=== PATIENT | female | born 1980 | race Caucasian/White ===

== ENCOUNTER 2021-04-13 14:17 | Observation (INO) | payer OTHER ==
[~2021-04-13] VITALS: Ht 160 cm; Wt 113.4 kg
[2021-04-13 15:43] LABS: BASOPHILS ABSOLUTE AUTO 0.05 K/mm3 (0.00-0.23); BASOPHILS PERCENT AUTO 0 % (0-2); EOSINOPHILS ABSOLUTE AUTO 0.06 K/mm3 (0.00-0.68); EOSINOPHILS PERCENT AUTO 0 % (0-6); Hematocrit 31.8 % (33.0-51.0); Hemoglobin 10.8 g/dL (11.5-16.0); IMMATURE GRAN PERCENT AUTO 1 % (0-1); LYMPHOCYTES ABSOLUTE AUTO 1.61 K/mm3 (0.84-5.20); LYMPHOCYTES PERCENT AUTO 10 % (21-46); MONOCYTES ABSOLUTE AUTO 0.91 K/mm3 (0.16-1.47); MONOCYTES PERCENT AUTO 6 % (4-13); Mean Corpuscular HGB 31.7 pg (26.0-34.0); Mean Corpuscular Volume 93 fL (80-100); Mean Platelet Volume 8.6 fL (9.1-12.4); NEUTROPHILS PERCENT AUTO 83 % (41-73); Platelet Count 275 K/mm3 (150-400); RDW Coefficient Variation 12.5 % (11.7-14.2); Red Blood Cell Count 3.41 M/mm3 (3.80-5.20); White Blood Cell Count 16.03 K/mm3 (4.00-11.30)
[2021-04-13 15:58] LABS: International Normalized Ratio 0.96; Prothrombin Time Results 10.4 Sec (9.7-11.5)
[2021-04-13 16:06] LABS: Alanine Aminotransfer (ALT/SGP 26 U/L (12-78); Albumin, Blood 3.6 g/dL (3.4-5.0); Albumin/Globulin Ratio 1.1 (0.8-1.8); Alk Phos 62 U/L (50-136); Anion Gap 7 mmol/L (6-16); Aspartate Aminotrans (AST/SGOT 21 U/L (12-37); Beta HCG, Quantitative, Serum <1 mIU/mL (0-3); Bilirubin, Total 0.3 mg/dL (0.1-1.0); Blood Urea Nitrogen 29 mg/dL (8-24); Bun/Creatinine Ratio 34.5 (12.0-20.0); CO2, Blood 24 mmol/L (21-32); Calcium, Blood 8.7 mg/dL (8.5-10.1); Chloride, Blood 107 mmol/L (98-108); Creatinine, Blood 0.84 mg/dL (0.40-1.00); Ethanol (Alcohol), Blood, Med <3 mg/dL; Globulin, Blood 3.3 g/dL (2.2-4.0); Glomerular Filtration Rate >60 (60-); Glucose, Blood 92 mg/dL (70-99); Potassium, Blood 3.4 mmol/L (3.5-5.5); Sodium, Blood 138 mmol/L (136-145); Total Protein, Blood 6.9 g/dL (6.4-8.2)
[2021-04-13] MEDS ORDERED: CEPH500 PO (17:17)
[2021-04-13] MEDS ORDERED: Norco 5-325 Ta1 EACH PO (17:17)
[2021-04-13] MEDS ORDERED: IBUP800 PO (17:17)
[2021-04-14 04:56] LABS: BASOPHILS ABSOLUTE AUTO 0.04 K/mm3 (0.00-0.23); BASOPHILS PERCENT AUTO 0 % (0-2); EOSINOPHILS ABSOLUTE AUTO 0.06 K/mm3 (0.00-0.68); EOSINOPHILS PERCENT AUTO 1 % (0-6); Hemoglobin 10.2 g/dL (11.5-16.0); IMMATURE GRAN ABSOLUTE AUTO 0.05 K/mm3 (0.00-0.10); IMMATURE GRAN PERCENT AUTO 1 % (0-1); LYMPHOCYTES ABSOLUTE AUTO 1.24 K/mm3 (0.84-5.20); LYMPHOCYTES PERCENT AUTO 12 % (21-46); MONOCYTES ABSOLUTE AUTO 0.98 K/mm3 (0.16-1.47); MONOCYTES PERCENT AUTO 9 % (4-13); Mean Corpuscular HGB 31.1 pg (26.0-34.0); Mean Corpuscular HGB Conc 32.9 g/dL (31.5-36.5); Mean Corpuscular Volume 95 fL (80-100); Mean Platelet Volume 8.8 fL (9.1-12.4); NEUTROPHILS ABSOLUTE AUTO 8.32 K/mm3 (1.96-9.15); NEUTROPHILS PERCENT AUTO 78 % (41-73); Platelet Count 268 K/mm3 (150-400); RDW Coefficient Variation 12.8 % (11.7-14.2); RDW Standard Deviation 44.6 fL (35.1-46.3); Red Blood Cell Count 3.28 M/mm3 (3.80-5.20); White Blood Cell Count 10.69 K/mm3 (4.00-11.30)
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
[2021-04-14 05:19] LABS: Alanine Aminotransfer (ALT/SGP 21 U/L (12-78); Albumin, Blood 3.3 g/dL (3.4-5.0); Alk Phos 55 U/L (50-136); Anion Gap 5 mmol/L (6-16); Aspartate Aminotrans (AST/SGOT 19 U/L (12-37); Bilirubin, Total 0.6 mg/dL (0.1-1.0); Blood Urea Nitrogen 23 mg/dL (8-24); Bun/Creatinine Ratio 39.8 (12.0-20.0); CO2, Blood 24 mmol/L (21-32); Calcium, Blood 8.1 mg/dL (8.5-10.1); Chloride, Blood 108 mmol/L (98-108); Creatinine, Blood 0.58 mg/dL (0.40-1.00); Globulin, Blood 3.3 g/dL (2.2-4.0); Glomerular Filtration Rate >60 (60-); Glucose, Blood 105 mg/dL (70-99); Potassium, Blood 3.5 mmol/L (3.5-5.5); Sodium, Blood 137 mmol/L (136-145); Total Protein, Blood 6.6 g/dL (6.4-8.2)
[2021-04-14] MEDS ORDERED: HYDR1TAB94 PO (13:22)
--- NOTE | 2021-04-14 15:16 | NUR ---
DISCHARGE SUMMARY PT A&OX4, VSS, LEFT FLOOR VIA WC WITH LINUX PROGRAMMER, TO GO HOME WITH MOM, WITH ALL PERSONAL PROPERTY, INCLUDING DC PACKET AND 1 NARC SCRIPT, AND DRESSING SUPPLIES. DC INSTRUCTIONS PROVIDED, PT REP UNDERSTANDING THOSE INSTRUCTIONS. IV DC'D.
[2021-05-03] MEDS ORDERED: CEPH500 PO (11:46)
[2021-05-15] MEDS ORDERED: IBUP800 PO (15:09)
[2021-05-16] MEDS ORDERED: Percocet 5-3251 EACH PO (09:54)
[2021-05-16] MEDS ORDERED: TRAZ50 PO (09:55)
[2021-05-16] MEDS ORDERED: UNKNOWN ANXIETY MED (10:01)
== END 2021-04-14 15:00 | disposition home or self-care (01) ==
LOC: ER 14:17 → SURS 14:18
PROVIDERS: Emergency Medicine; ADMIT Surgery
DX: S71.112A Laceration without foreign body, left thigh, initial encounter (principal); S30.1XXA Contusion of abdominal wall, initial encounter; S70.02XA Contusion of left hip, initial encounter; R40.2412 Glasgow coma scale score 13-15, at arrival to emergency department; V48.5XXA Car driver injured in noncollision transport accident in traffic accident, initial encounter
CPT/HCPCS: 12005; 36415; 70450; 71045; 71260; 73552; 74177; 80053; 83690; 84702; 85025; 85610; 96365-59; 96375; 96375-59; 96376; 96376-59; 99152; 99285-25; A9270; G0378; G0480; J0690; J1170; J2270; J2405; J3010; J7030; J7120; Q9967

== ENCOUNTER 2021-04-29 04:37 | Inpatient (IN) | payer OTHER ==
[~2021-04-29] VITALS: Ht 165.1 cm; Wt 86.2 kg
[~2021-04-29 04:37] MED LIST: CEPH500 PO; HYDR1TAB94 PO; IBUP800 PO; Norco 5-325 Ta1 EACH PO
[2021-04-29 07:17] LABS: BASOPHILS ABSOLUTE AUTO 0.05 K/mm3 (0.00-0.23); BASOPHILS PERCENT AUTO 1 % (0-2); EOSINOPHILS PERCENT AUTO 1 % (0-6); Hematocrit 33.4 % (33.0-51.0); Hemoglobin 10.7 g/dL (11.5-16.0); IMMATURE GRAN ABSOLUTE AUTO 0.03 K/mm3 (0.00-0.10); IMMATURE GRAN PERCENT AUTO 0 % (0-1); LYMPHOCYTES ABSOLUTE AUTO 1.65 K/mm3 (0.84-5.20); LYMPHOCYTES PERCENT AUTO 21 % (21-46); MONOCYTES ABSOLUTE AUTO 0.67 K/mm3 (0.16-1.47); MONOCYTES PERCENT AUTO 9 % (4-13); Mean Corpuscular HGB 31.7 pg (26.0-34.0); Mean Corpuscular Volume 99 fL (80-100); Mean Platelet Volume 9.1 fL (9.1-12.4); NEUTROPHILS ABSOLUTE AUTO 5.31 K/mm3 (1.96-9.15); NEUTROPHILS PERCENT AUTO 68 % (41-73); Platelet Count 413 K/mm3 (150-400); RDW Coefficient Variation 13.7 % (11.7-14.2); RDW Standard Deviation 48.7 fL (35.1-46.3); Red Blood Cell Count 3.38 M/mm3 (3.80-5.20); White Blood Cell Count 7.81 K/mm3 (4.00-11.30)
[2021-04-29 07:37] LABS: Alanine Aminotransfer (ALT/SGP 13 U/L (12-78); Albumin, Blood 3.1 g/dL (3.4-5.0); Albumin/Globulin Ratio 0.8 (0.8-1.8); Alk Phos 61 U/L (50-136); Anion Gap 5 mmol/L (6-16); Aspartate Aminotrans (AST/SGOT 13 U/L (12-37); Bilirubin, Total 0.2 mg/dL (0.1-1.0); Blood Urea Nitrogen 21 mg/dL (8-24); Bun/Creatinine Ratio 31.9 (12.0-20.0); CO2, Blood 27 mmol/L (21-32); Calcium, Blood 8.5 mg/dL (8.5-10.1); Chloride, Blood 108 mmol/L (98-108); Creatinine, Blood 0.66 mg/dL (0.40-1.00); Glomerular Filtration Rate >60 (60-); Glucose, Blood 111 mg/dL (70-99); Potassium, Blood 4.2 mmol/L (3.5-5.5); Sodium, Blood 140 mmol/L (136-145); Total Protein, Blood 7.1 g/dL (6.4-8.2)
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
[2021-04-29 09:23] LABS: SARS-Cov-2 (COVID-19) PCR, MMC NEGATIVE (NEGATIVE)
--- NOTE | 2021-04-29 09:40 | NUR ---
PT TO OR AT APROX 0908
--- NOTE | 2021-04-29 10:46 | NUR ---
04/29/21 1046 Chuck Barlow NO PREOP ANTIBIOTICS PER .
--- NOTE | 2021-04-29 18:12 | NUR ---
SHIFT SUMMARY PT POD 0 I&D W/WOUND VAC PLACEMENT TO L THIGH. SCANT AMT SANGUINOUS DRAINAGE PRESENT IN VAC COLLECTION, FOAM COMPRESSED. PT C/O "TUGGING PAIN", MEDICATED PER EMAR. PT SBA TO BATHROOM FOR ASSISTANCE WITH LINES. DENIES N/V, TOLERATING REGULAR DIET. AFEBRILE. PLAN IS TO DC HOME TOMORROW WITH HOME WOUND VAC, MEASURMENTS FOR WOUND ARE IN OPERATIVE REPORT.
--- NOTE | 2021-04-30 04:13 | NUR ---
SHIFT SUMMARY POD#1 LEFT THIGH I+D WITH WOUND VAC PLACEMENT. AAOX4. DISCOMFORT CONTROLLED WITH 1 NORCO Q4H + 0.5MG IV DILAUDID X2 THIS SHIFT. NO NAUSEA/EMESIS. WOUND VAC TO LEFT ANTERIOR THIGH C/D/I, SMALL AMOUNT SS DRAINAGE OUT. IVF PER ORDERS. GOOD PO INTAKE + URINE OUTPUT. PT UP TO RESTROOM SBA WITH FWW TO HELP MANAGE LINES. PT RESTING WELL THIS AM WITH CALL LIGHT IN REACH.
--- NOTE | 2021-04-30 19:39 | NUR ---
SHIFT SUMMARY PATIENT ALERT AND ORIENTED THROUGHOUT SHIFT. SBA WITH FWW AND WOUND VAC TO BATHROOM. WOUND VAC CHANGED THIS SHIFT BY GENERAL SURGERY. MEDICATED FOR PAIN PER EMAR. TOLERATING REGULAR DIET AND FLUIDS. PLAN IS TO RETURN TO OR IN NEXT DAY OR TWO FOR DEBRIDEMENT AND WASHOUT AND REPLACEMENT OF WOUND VAC. THEN DISCHARGE TO FOLLOW UP WITH WOUND CLINIC. REPORT GIVEN TO CORPORATE LIBRARIAN RN.
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
--- NOTE | 2021-05-01 13:43 | NUR ---
SPOKE WITH RADHA, WINDOWS APPLICATION ADMINISTRATOR ABOUT HH UPON DISCHARGE AND HOME WOUND VAC. HOME WOUND VAC NOW AT BEDSIDE. REVIEWED PT PLAN WITH , PT IS TO STAY TONIGHT AND HAVE DRESSING CHANGE IN THE OR WITH DR. JACOBS TOMORROW. PT AND PT FAMILY ARE AWARE. WILL CTM.
--- NOTE | 2021-05-01 19:56 | NUR ---
SUMMARY: NO ACUTE CHANGE TODAY, VSS, A/O. WOUND VAC SITE IS FIRM AND HOT TO THE TOUCH ON THE R SIDE OF WOUND EDGE, IS AWARE, OTHERWISE WOUND VAC COMPRESSED AND WNL. PT REPORTS PAIN MANAGABLE TODAY WITH 2 PERCOCET. PT AMBULATORY IN ROOM WITH FWW, MOVING WELL. PLAN IS FOR WOUND VAC CHANGE TOMORROW AND POSSIBLE I&D PER . NPO AT 0000. REPORT GIVEN TO NIKI ANDREWS RN .
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
--- NOTE | 2021-05-02 13:38 | NUR ---
PATIENT LEFT FOR SURGERY AROUND 1314 TODAY.
--- NOTE | 2021-05-02 14:08 | NUR ---
THE PATIENT WAS BROUGHT TO D/S FOR HER PROCEDURE. Mohit Paws warming gown applied. Patient up to Ambulate independently. Gait steady. History, Chart, Medications and Allergies reviewed before start of procedure.Lungs clear T/O to Auscultation. Patient confirms NPO status and agrees with scheduled surgery. Pre-Op teaching done. Pt verbalizes understanding. Patient States Post-Procedure ride home has been arranged.
--- NOTE | 2021-05-02 16:30 | NUR ---
PATIENT ARRIVED FROM PACU TODAY 05/02/21 AT 1630. POD 0 I&D AND WOUND VAC REPLACED SHE IS ALERT AND ORIENTED X4. VS ARE WNL AND IS ON RA. PATIENT DENIES PAIN AT THIS TIME. PATIENTS LEFT THIGH IS WARM TO TOUCH AND HAS A NEW WOUND VAC ON. BLACK FOAM IS COMPRESSED AND SUCTIONING OUTPUT. PATIENT IS TOLERATING SOME SALINES AND DRINKING WATER. SHE STATES SHE HAS SMALL AREA OF NUMBNESS BUT SHE IS ABLE TO WIGGLE FINGERS AND TOES. CALL LIGHT WITHIN REACH.
[2021-05-02] MEDS ORDERED: Norco 5-325 Ta1 EACH PO (16:41)
--- NOTE | 2021-05-02 17:07 | NUR ---
05/02/21 1707 S[facility] HUITRON PT NOTED TO HAVE A LOOSE TOOTH ON LEFT LOWER SIDE PRIOR TO PROCEDURE. LMA PLACED CAREFULLY BY ANESTHESIA, PTS TOOTH NOTED TO BE INTACT AFTER PLACEMENT OF LMA.
--- NOTE | 2021-05-02 18:10 | NUR ---
DISCHARGE NOTE: PATIENT WAS EDUCATED ON DISCHARGE INSTRUCTIONS. SHE VERBALIZED UNDERSTANDING OF INSTRUCTIONS AND HAD NO FURTHER QUESTIONS AT THIS TIME. PATIENTS HARD PERSCRIPTION WAS IN THE FOLDER WITH INSTRUCTIONS. SHE IS ALERT AND ORIENTED X4. VS ARE WNL AND IS ON RA. PAIN IS MANAGED WITH 2 PO NORCOS. PATIENT IS A SBA WITH AMBULATION. WOUND VAC HAS THE BLACK FOAM COMPRESSED AND IS SUCTIONING. SHE DENIES NUMBNESS OR TINGLING AT THIS TIME. SHE IS ABLE TO WIGGLE FINGERS AND TOES. PATIENT HAS HER PERSONAL BELONGINGS GATHERED AND IS DRESSED. IV WAS TAKEN OUT AND WAS WNL. PATIENT WAS WHEELCHAIRED OUT TO HUSBANDS CAR TO BE TAKEN HOME.
[2021-05-03] MEDS ORDERED: CEPH500 PO (11:46)
[2021-05-15] MEDS ORDERED: IBUP800 PO (15:09)
[2021-05-16] MEDS ORDERED: Percocet 5-3251 EACH PO (09:54)
[2021-05-16] MEDS ORDERED: TRAZ50 PO (09:55)
[2021-05-16] MEDS ORDERED: UNKNOWN ANXIETY MED (10:01)
== END 2021-05-02 18:30 | disposition home health service (06) | DRG 572 ==
LOC: ER 04:37 → SURS 04:38
PROVIDERS: Emergency Medicine; ADMIT Surgery
PROC: 0JBM0ZZ Excision of Left Upper Leg Subcutaneous Tissue and Fascia, Open Approach (ICD-10-PCS; principal; 2021-04-29 08:00)
DX: L03.116 Cellulitis of left lower limb (principal); S81.802A Unspecified open wound, left lower leg, initial encounter; Z20.822 Contact with and (suspected) exposure to COVID-19; V89.2XXA Person injured in unspecified motor-vehicle accident, traffic, initial encounter
CPT/HCPCS: 36415; 80053; 85025; 94760; 96374; 96375; 96376; 99284-25; A9270; G0378; J0690; J1100; J1170; J1650; J2175; J2250; J2405; J2704; J3010; J7030; J7120; U0004

== ENCOUNTER 2021-05-04 12:27 | Day surgery (SDC) | payer OTHER ==
[~2021-05-04] VITALS: Ht 165.1 cm; Wt 100.7 kg
--- NOTE | 2021-05-04 12:58 | NUR ---
PT IN TO SDS BY W/C BUT ABLE TO STAND AND GET SELF DRESSED INTO GOWN AND WALK SHORT DISTANCES. PT REPORTS HAVING HCG TEST COMPLETED FRIDAY. History, Chart, Medications and Allergies reviewed before start of procedure. Lungs clear T/O to Auscultation. Patient confirms NPO status and agrees with scheduled surgery. Pre-Op teaching done. Pt verbalizes understanding.
--- NOTE | 2021-05-04 13:09 | NUR ---
DISCUSSED ABX WITH WHO REPORTED NO NEED FOR ABX AT THIS TIME.
--- NOTE | 2021-05-04 13:49 | NUR ---
05/04/21 1349 [facility] [place] ASKED PRIOR TO PROCEDURE IF HEM WOULD LIKE PT TO HAVE A DOSE OF ANTIBIOTICS, DOES NOT WANT TO PT HAVE A DOSE OF ANTIBIOTICS AT THIS TIME.
--- NOTE | 2021-05-04 14:31 | NUR ---
Dressing to procedure site clean, dry, intact with no visible drainage, swelling, erythema or bruising noted.
--- NOTE | 2021-05-04 15:10 | NUR ---
PT STATES SHE HAS INSTRUCTIONS FOR WOUND VAC AT HOME WITH A NUMBER TO CALL FOR ANY QUESTIONS
--- NOTE | 2021-05-04 15:35 | NUR ---
Discharge instructions reviewed with patient. Patient verbalizes understanding. Copy given to patient to take home. Dressing to procedure site clean, dry, intact with no visible drainage, swelling, erythema or bruising noted. Discharged via wheelchair to private car for ride home.
== END 2021-05-04 15:40 | disposition home or self-care (01) ==
LOC: ORSCMMR 12:27 → ORD 13:30 → ORSCMMR 13:30
PROVIDERS: Surgery
PROC: 0JBM0ZZ Excision of Left Upper Leg Subcutaneous Tissue and Fascia, Open Approach (ICD-10-PCS; principal; 2021-05-04 13:30)
DX: S81.812D Laceration without foreign body, left lower leg, subsequent encounter (principal); V49.9XXD Car occupant (driver) (passenger) injured in unspecified traffic accident, subsequent encounter; E66.01 Morbid (severe) obesity due to excess calories; Z68.37 Body mass index [BMI] 37.0-37.9, adult; Z79.899 Other long term (current) drug therapy
CPT/HCPCS: A9270; J1100; J1885; J2270; J2370; J2405; J2704; J3010; J7120

== ENCOUNTER 2021-05-11 09:21 | Day surgery (SDC) | payer OTHER ==
[~2021-05-11] VITALS: Ht 165.1 cm; Wt 102.1 kg
[2021-05-15] MEDS ORDERED: IBUP800 PO (15:09)
[2021-05-16] MEDS ORDERED: Percocet 5-3251 EACH PO (09:54)
[2021-05-16] MEDS ORDERED: TRAZ50 PO (09:55)
[2021-05-16] MEDS ORDERED: UNKNOWN ANXIETY MED (10:01)
== END 2021-05-11 13:08 | disposition home or self-care (01) ==
LOC: ORSCSDS 09:21
PROVIDERS: Surgery
PROC: 0JBM0ZZ Excision of Left Upper Leg Subcutaneous Tissue and Fascia, Open Approach (ICD-10-PCS; principal; 2021-05-11 11:15)
DX: S81.812D Laceration without foreign body, left lower leg, subsequent encounter (principal); E66.01 Morbid (severe) obesity due to excess calories; Z68.37 Body mass index [BMI] 37.0-37.9, adult
CPT/HCPCS: J1100; J1885; J2250; J2405; J2704; J3010; J7120

== ENCOUNTER 2021-05-14 08:53 | Day surgery (SDC) | payer OTHER ==
[~2021-05-14] VITALS: Ht 165.1 cm; Wt 106.4 kg
[2021-05-14] MEDS ORDERED: OXYC5 (09:34)
--- NOTE | 2021-05-14 10:30 | NUR ---
MD AT BEDSIDE, ORDERED BLOOD CX AND CBC, PT MEDICATED WITH VERSED 2MG PER ORDER, ANESTHESIA AT BEDSIDE, PT TOLERATED BLOOD DRAW WELL.
[2021-05-14 10:41] LABS: BASOPHILS ABSOLUTE AUTO 0.05 K/mm3 (0.00-0.23); BASOPHILS PERCENT AUTO 0 % (0-2); EOSINOPHILS ABSOLUTE AUTO 0.14 K/mm3 (0.00-0.68); EOSINOPHILS PERCENT AUTO 1 % (0-6); Hematocrit 33.1 % (33.0-51.0); Hemoglobin 10.4 g/dL (11.5-16.0); IMMATURE GRAN ABSOLUTE AUTO 0.04 K/mm3 (0.00-0.10); IMMATURE GRAN PERCENT AUTO 0 % (0-1); LYMPHOCYTES PERCENT AUTO 13 % (21-46); MONOCYTES ABSOLUTE AUTO 0.78 K/mm3 (0.16-1.47); MONOCYTES PERCENT AUTO 7 % (4-13); Mean Corpuscular HGB 30.9 pg (26.0-34.0); Mean Corpuscular HGB Conc 31.4 g/dL (31.5-36.5); Mean Corpuscular Volume 98 fL (80-100); Mean Platelet Volume 8.7 fL (9.1-12.4); NEUTROPHILS PERCENT AUTO 78 % (41-73); Platelet Count 360 K/mm3 (150-400); RDW Coefficient Variation 13.3 % (11.7-14.2); RDW Standard Deviation 47.5 fL (35.1-46.3); Red Blood Cell Count 3.37 M/mm3 (3.80-5.20); White Blood Cell Count 11.21 K/mm3 (4.00-11.30)
--- NOTE | 2021-05-14 12:45 | NUR ---
Patient up to Ambulate independently. Gait steady. DENIES DIZZINESS. Discharge instructions reviewed with patient AND WHO VERBALIZE UNDERSTANDING. Copy given to patient to take home. Discharged via wheelchair to private car for ride home WITH .
[2021-05-15] MEDS ORDERED: IBUP800 PO (15:09)
--- NOTE | 2021-05-15 15:19 | NUR ---
05/15/21 1519 Sahra Pinedo VERIFICATIONS: EDIT CHART.
[2021-05-16] MEDS ORDERED: Percocet 5-3251 EACH PO (09:54)
[2021-05-16] MEDS ORDERED: TRAZ50 PO (09:55)
[2021-05-16] MEDS ORDERED: UNKNOWN ANXIETY MED (10:01)
== END 2021-05-14 12:45 | disposition home or self-care (01) ==
LOC: ORSCMMR 08:53 → ORSCSDS 11:15 → ORSCMMR 12:45
PROVIDERS: Surgery
PROC: 0HBHXZZ Excision of Right Upper Leg Skin, External Approach (ICD-10-PCS; principal; 2021-05-14 10:15)
PROC: 0HRJX74 Replacement of Left Upper Leg Skin with Autologous Tissue Substitute, Partial Thickness, External Approach (ICD-10-PCS; principal; 2021-05-14 10:15)
DX: S81.812D Laceration without foreign body, left lower leg, subsequent encounter (principal); E66.01 Morbid (severe) obesity due to excess calories; Z68.39 Body mass index [BMI] 39.0-39.9, adult
CPT/HCPCS: 36415; 85025; 87040; A9270; J1100; J1170; J2250; J2370; J2405; J2704; J3010; J7120

== ENCOUNTER 2021-05-16 09:27 | Day surgery (SDC) | payer OTHER | END 2021-05-16 14:39 | disposition home or self-care (01) | LOC: ORSCMMR 09:27 | PROC: 0HRJX74 Replacement of Left Upper Leg Skin with Autologous Tissue Substitute, Partial Thickness, External Approach (ICD-10-PCS; principal; 2021-05-16) | PROC: 0HBHXZZ Excision of Right Upper Leg Skin, External Approach (ICD-10-PCS; principal; 2021-05-16) | DX: S81.812D Laceration without foreign body, left lower leg, subsequent encounter (principal); K21.9 Gastro-esophageal reflux disease without esophagitis; E66.01 Morbid (severe) obesity due to excess calories; Z68.39 Body mass index [BMI] 39.0-39.9, adult ==

== ENCOUNTER 2021-11-28 19:01 | Emergency (ER) | payer OTHER ==
[~2021-11-28] VITALS: Ht 167.6 cm; Wt 104.3 kg
[~2021-11-28 19:01] MED LIST changes: +OXYC5; +Percocet 5-3251 EACH PO; +TRAZ50 PO; +UNKNOWN ANXIETY MED
== END 2021-11-28 21:47 | disposition left against medical advice (07) ==
LOC: ER 19:01
DX: Z53.21 Procedure and treatment not carried out due to patient leaving prior to being seen by health care provider (principal)
CPT/HCPCS: 70450; 71101

== ENCOUNTER → 2023-05-06 | Outpatient (CLI) | payer OTHER ==
[2023-05-09 14:09] LABS: HPV 16 Negative (Negative); HPV 18 Negative (Negative); HPV OTHER HR TYPES Negative (Negative)
== END ==
LOC: LAB SHORT 17:37 → LAB 17:37
PROVIDERS: Nurse Practitioner Family
DX: Z01.419 Encounter for gynecological examination (general) (routine) without abnormal findings (principal)
CPT/HCPCS: 87624; G0145

== ENCOUNTER 2024-12-28 16:53 | Emergency (ER) | payer OTHER ==
[~2024-12-28] VITALS: Ht 165.1 cm; Wt 133.8 kg
[2024-12-28 17:09] VITALS: BP 125/87
[2024-12-28] MEDS ORDERED: HYDROcodone 7.5-APAP 325 TAB PO ONE (19:15)
[2024-12-28] MEDS ORDERED: HYDR1TAB94 PO (19:17)
== END 2024-12-28 19:25 | disposition home or self-care (01) ==
LOC: ER 16:53
DX: M25.811 Other specified joint disorders, right shoulder (principal); Z79.899 Other long term (current) drug therapy; Z87.891 Personal history of nicotine dependence
CPT/HCPCS: 99283-25; A9270